=== PATIENT | female | born 2000 | race Two or more races ===

== ENCOUNTER 2024-11-15 19:31 | Emergency (ER) | payer OTHER ==
[~2024-11-15] VITALS: Ht 167.6 cm; Wt 76.5 kg
--- NOTE | 2024-11-15 21:14 | ED.PDOC ---
MOTHER SUPERIOR HPI Comments 24-year-old female who came to ER for abdominal pain. Patient is a , a pproximately 16 weeks . States she tripped earlier, and fell badly on her suprapubic area. Denies any vaginal bleeding. Chief Complaint: Abdominal Pain Time Seen by MD: 21:14 Reviewed Notes: Nurses Notes Allergies: Coded Allergies: NO KNOWN ALLERGIES (Unverified , 11/15/24) Information Source: Patient Mode of Arrival: Ambulatory Timing: Hours Severity: Mild Vaginal Discharge: None Vaginal Lesions: None Sexual Activity: Associated Signs and Symptoms: Abdominal Pain Past Medical History PAST MEDICAL HISTORY: Denies Surgical History: Denies all surgeries 1 Para 0 Family History Family History: Reviewed,noncontributory to illness Social History Smoker: Non-Smoker Alcohol: Denies ETOH Use Drugs: Denies Drug Use Lives In: Home Constitutional: denies: chills, diaphoresis, fatigue, fever, malaise, sweats, weakness, others EENTM: denies: blurred vision, double vision, ear bleeding, ear discharge, ear drainage, ear pain, ear ringing, eye pain, eye redness, hearing loss, mouth pain, mouth swelling, nasal discharge, nose bleeding, nose congestion, nose pain, photophobia, tearing, throat pain, throat swelling, voice changes, others Respiratory: denies: cough, hemoptysis, orthopnea, SOB at rest, shortness of breath, SOB with excertion, stridor, wheezing, others Cardiovascular: denies: chest pain, dizzy spells, diaphoresis, Dyspnea on exertion, edema, irregular heart beat, left arm pain, lightheadedness, palpitations, PND, syncope, others Gastrointestinal: reports: abdominal pain; denies: abdomen distended, blood streaked bowels, constipated, diarrhea, dysphagia, difficulty swallowing, hematemesis, melena, nausea, poor appetite, poor fluid intake, rectal bleeding, rectal pain, vomiting, others Genitourinary: denies: abnormal vagina bleeding, burning, dyspareunia, dysuria, flank pain, frequency, hematuria, incontinence, pain, , vagina discharge, urgency, others Neurological: denies: dizziness, fainting, headache, left sided numbness, left sided weakness, numbness, paresthesia, pre-existing deficit, right sided numbness, right sided weakness, seizure, speech problems, tingling, tremors, weakness, others Musculoskeletal: denies: back pain, gout, joint pain, joint swelling, muscle pain, muscle stiffness, neck pain, others Integumetry: denies: bruises, change in color, change in hair/nails, dryness, laceration, lesions, lumps, rash, wounds, others Allergic/Immunocompromised: denies: Difficulty Healing, Frequent Infections, Hives, Itching, others Hematologic/Lymphatic: denies: anemia, blood clots, easy bleeding, easy bruising, swollen glands, others Endocrine: denies: excessive hunger, excessive sweating, excessive thirst, excessive urination, flushing, intolerance to cold, intolerance to heat, unexplained weight gain, unexplained weight loss, others Psychiatric: denies: anxiety, bipolar disorder, depression, hopeless, panic disorder, schizophrenia, sleepless, suicidal, others Physical Exam General Appearance: No Apparent Distress, Normal HEENT: Normal ENT Inspection, Pharynx Normal, TMs Normal Neck: Full Range of Motion, Non-Tender, Normal, Normal Inspection Respiratory: Chest Non-Tender, Lungs Clear, No Accessory Muscle Use, No Respiratory Distress, Normal Breath Sounds Cardiovascular: No Edema, No JVD, No Murmur, No Gallop, Normal Peripheral Pulses, Regular Rate/Rhythm Breast Exam: Deferred Gastrointestinal: No Organomegaly, Non Tender, No Pulsatile Mass, Normal Bowel Sounds, Soft Genitalia: Deferred Pelvic: Deferred Rectal: Deferred Extremities: No calf tenderness, Normal capillary refill, Normal inspection, Normal range of motion, Non-tender, No pedal edema Musculoskeletal : Apperance: Normal Neurologic: Alert, welder explosion II-XII nml as Tested, No Motor Deficits, Normal Affect, Normal Mood, No Sensory Deficits Cerebellar Function: Normal Reflexes: Normal Skin: Dry, Normal Color, Warm Lymphatic: No Adenopathy Was a procedure done? Was a procedure done?: No Differential Diagnosis (SPOT MACHINE OPERATOR) Vaginal Bleeding: - Missed, - Threatened, Trauma, UTI Vaginal Discharge: X-Ray, Labs, Meds, VS Vital Signs Date Time Temp Pulse Resp B/P (MAP) Pulse Ox O2 Delivery O2 Flow Rate FiO2 11/16/24 00:46 98.1 88 19 124/79 (94) 99 98.1 11/16/24 00:46 88 18 99 Room Air* 0 21 8/28/25 19:34 98.1 88 18 124/79 99 98.1 Lab Test 11/15/24 22:46 11/15/24 21:12 Range/Units Urine Color Yellow Yellow Urine Clarity Turbid H Clear Urine pH 6.5 5.0-9.0 Urine Specific [place] 1.029 1.001-1.035 Urine Protein Trace H Negative Urine Ketones 3+ H Negative Urine Blood Negative Negative /uL Urine Nitrite Negative Negative Urine Bilirubin Negative Negative Urine Urobilinogen Normal Negative mg/dL Urine Leukocyte Esterase Negative Negative /uL Urine RBC None seen 0 - 4 /hpf Urine Microscopic WBC 3 0-5 /HPF Urine Squamous Epithelial Cells Mod <5 /hpf Urine Bacteria None seen None Seen /hpf Urine Mucus Few None Seen Urine Glucose Normal Normal mg/dL White Blood Count 6.9 4.4-10.8 10^3/uL Red Blood Count 4.70 4.0-5.20 10^6/uL Hemoglobin 13.0 12.2-16.2 g/dL Hematocrit 38.0 36.0-46.0 % Mean Corpuscular Volume 80.9 80.0-100.0 fL Mean Corpuscular Hemoglobin 27.6 L 28.0-32.0 pg Mean Corpuscular Hemoglobin Concent 34.1 32.0-36.0 g/dL Red Cell Distribution Width 25.7 H 11.8-14.3 % Platelet Count 179 140-450 10^3/uL Mean Platelet Volume 10.2 6.9-10.8 fL Neutrophils (%) (Auto) 69.9 37.0-80.0 % Lymphocytes (%) (Auto) 23.5 10.0-50.0 % Monocytes (%) (Auto) 4.7 0.0-12.0 % Eosinophils (%) (Auto) 1.6 0.0-7.0 % Basophils (%) (Auto) 0.3 0.0-2.0 % Neutrophils # (Auto) 4.9 1.6-8.6 10 ^3/uL Lymphocytes # (Auto) 1.6 0.4-5.4 10 ^3/uL Monocytes # (Auto) 0.3 0-1.3 10 ^3/uL Eosinophils # (Auto) 0.1 0-0.8 10 ^3/uL Basophils # (Auto) 0 0-0.2 10 ^3/uL Nucleated Red Blood Cells 0.0 % Sodium Level 138 136-145 mmol/L Potassium Level 3.3 L 3.5-5.1 mmol/L Chloride Level 104 98-107 mmol/L Carbon Dioxide Level 22 20-31 mmol/L Anion Gap 12 5-15 Blood Urea Nitrogen < 5 L 9-23 mg/dL Creatinine 0.45 L 0.550-1.02 mg/dL Glomerular Filtration Rate Calc 139 >90 mL/min BUN/Creatinine Ratio 11.1 10.0-20.0 Serum Glucose 98 74-106 mg/dL Calcium Level 9.5 8.7-10.4 mg/dL Beta HCG, Quantitative 09877.7 H 1.5-4.2 mIU/mL Time of 1ST Reevaluation: 21:12 Reevaluation 1ST: Unchanged Patient Education/Counseling: Diagnosis, Treatment Family Education/Counseling: Diagnosis, Treatment Departure 1 Departure Time of Disposition: 23:00 Impression: Primary Impression: 16 weeks gestation of Additional Impression: Abdominal pain affecting Disposition: 01 HOME / SELF CARE / HOMELESS Condition: Stable Discharged With: Self Critical Care Note Critical Care Time?: No Stability Stability form required: No Heart Score Heart Score: Heart Score Response (Comments) Value History N/A 0 EKG N/A 0 Age N/A 0 Risk Factors N/A 0 Troponin N/A 0 Total 0 I personally scribed for GITA ARTIS MD ([email or web address]) on 11/15/24 at 21:14. Electronically submitted by Nikolai Crockett ([email or web address]). GITA ARTIS MD Nov 15, 2024 21:14
[2024-11-15 21:41] LABS: Hematocrit 38.0 % (36.0-46.0); Hemoglobin 13.0 g/dL (12.2-16.2); Mean Corpuscular Hemoglobin 27.6 pg (28.0-32.0); Mean Corpuscular Volume 80.9 fL (80.0-100.0); Nucleated Red Blood Cells % 0.0 %
[2024-11-15 21:48] LABS: Chloride 104 mmol/L (98-107); Sodium 138 mmol/L (136-145)
[2024-11-15 21:49] LABS: Anion Gap 12 (5-15); Calcium 9.5 mg/dL (8.7-10.4); Carbon Dioxide 22 mmol/L (20-31)
[2024-11-15 21:54] LABS: Glucose 98 mg/dL (74-106)
--- NOTE | 2024-11-15 21:57 | DVH ---
LIMITED SURVEY CLINICAL HISTORY: pain, 16 wks COMPARISON: None TECHNIQUE: Real-time grayscale, color flow and M-mode imaging of the gravid uterus is performed. FINDINGS: Single living intrauterine gestation. Breech presentation. heart rate 155 beats per minute. Average ultrasound age 17 weeks 2 days. Estimated due date 04/23/2025. The placenta is posterior. The cervix is not clearly visualized. No definite evidence of abruption or previa at this time. measurements (cm): BPD 3.6, HC 13.6, AC 4.8, FL 2.4. Estimated weight: 192 g Amniotic fluid is visually adequate. IMPRESSION: Single living intrauterine gestation as above.
[2024-11-15 22:03] LABS: BUN/Creatinine Ratio 11.1 (10.0-20.0); Blood Urea Nitrogen < 5 mg/dL (9-23); Potassium 3.3 mmol/L (3.5-5.1)
[2024-11-16 00:10] LABS: Urine Protein, UAD TRACE (Negative)
[2024-11-16 00:46] VITALS: BP 124/79; PULSE 88; RESP 18; TEMP 98.1; O2SAT 99
== END 2024-11-16 00:56 | disposition home or self-care (01) ==
LOC: ER 19:31
DX: O26.892 Other specified pregnancy related conditions, second trimester (principal); R10.2 Pelvic and perineal pain; W01.0XXA Fall on same level from slipping, tripping and stumbling without subsequent striking against object, initial encounter; Y93.89 Activity, other specified; Y92.89 Other specified places as the place of occurrence of the external cause; Y99.8 Other external cause status; Z3A.16 16 weeks gestation of pregnancy
CPT/HCPCS: 36415; 76805; 80048; 81001; 84702; 85025

== ENCOUNTER 2024-12-21 10:17 | Observation (INO) | payer MEDICAID, OTHER ==
[~2024-12-21] VITALS: Ht 167.6 cm; Wt 78.2 kg
[2024-12-21 10:19] VITALS: BP 122/83; PULSE 84; RESP 16; TEMP 98.2; O2SAT 99
--- NOTE | 2024-12-21 10:32 | ED.PDOC ---
ADULT LIVE IN CAREGIVER HPI Comments A 24 YEAR OLD FEMALE PRESENTS TO THE ED WITH COMPLAINT OF VAGINAL SPOTTING DURING . PATIENT STATES SHE IS CURRENTLY ABOUT 21 WEEKS AND BEGAN TO EXPERIENCE VAGINAL SPOTTING YESTERDAY NIGHT. PATIENT REPORTS SHE WAS INSTRUCTED BY HER ADULT LIVE IN CAREGIVER TO COME TO THE ED FOR EVALUATION. PATIENT DENIES D YSURIA, HEMATURIA, VAGINAL DISCHARGE, FEVER, CHILLS, SHORTNESS OF BREATH, CHEST PAIN, ABDOMINAL PAIN, NAUSEA, VOMITING, HEADACHE, OR OTHER COMPLAINTS. NO OTHER SYMPTOMS OR MODIFYING FACTORS AT THIS TIME. PATIENT IS ALERT, ORIENTED X 4, AND HAS STEADY GAIT. Chief Complaint: Vaginal Bleed Time Seen by MD: 10:22 Reviewed Notes: Nurses Notes, Medications, Allergies Allergies: Coded Allergies: NO KNOWN ALLERGIES (Unverified , 11/15/24) Information Source: Patient Mode of Arrival: Ambulatory Timing: Days Prehospital treatment: None Severity: Mild Vaginal Discharge: None Vaginal Lesions: None Bleeding Quality: Bright Red Vaginal Mass: None Onset Of Mass/Bleeding: Spontaneous Sexual Activity: Control: None History of: Current Blood Type: Unknown Symptoms of Possible : None Associated Signs and Symptoms: Vaginal Bleeding Past Medical History PAST MEDICAL HISTORY: Denies Surgical History: Denies all surgeries BLOOD BANK SUPERVISOR History: No Pertinent BLOOD BANK SUPERVISOR History Family History Family History: Reviewed,noncontributory to illness Social History Smoker: Non-Smoker Alcohol: Denies ETOH Use Drugs: Denies Drug Use Lives In: Home Constitutional: denies: chills, diaphoresis, fatigue, fever, malaise, sweats, weakness, others EENTM: denies: blurred vision, double vision, ear bleeding, ear discharge, ear drainage, ear pain, ear ringing, eye pain, eye redness, hearing loss, mouth pain, mouth swelling, nasal discharge, nose bleeding, nose congestion, nose pain, photophobia, tearing, throat pain, throat swelling, voice changes, others Respiratory: denies: cough, hemoptysis, orthopnea, SOB at rest, shortness of breath, SOB with excertion, stridor, wheezing, others Cardiovascular: denies: chest pain, dizzy spells, diaphoresis, Dyspnea on exertion, edema, irregular heart beat, left arm pain, lightheadedness, palpitations, PND, syncope, others Gastrointestinal: denies: abdomen distended, abdominal pain, blood streaked bowels, constipated, diarrhea, dysphagia, difficulty swallowing, hematemesis, melena, nausea, poor appetite, poor fluid intake, rectal bleeding, rectal pain, vomiting, others Genitourinary: reports: abnormal vagina bleeding (VAGINAL SPOTTING), ; denies: burning, dyspareunia, dysuria, flank pain, frequency, hematuria, incontinence, pain, vagina discharge, urgency, others Neurological: denies: dizziness, fainting, headache, left sided numbness, left sided weakness, numbness, paresthesia, pre-existing deficit, right sided numbness, right sided weakness, seizure, speech problems, tingling, tremors, weakness, others Musculoskeletal: denies: back pain, gout, joint pain, joint swelling, muscle pain, muscle stiffness, neck pain, others Integumetry: denies: bruises, change in color, change in hair/nails, dryness, laceration, lesions, lumps, rash, wounds, others Allergic/Immunocompromised: denies: Difficulty Healing, Frequent Infections, Hives, Itching, others Hematologic/Lymphatic: denies: anemia, blood clots, easy bleeding, easy bruising, swollen glands, others Endocrine: denies: excessive hunger, excessive sweating, excessive thirst, excessive urination, flushing, intolerance to cold, intolerance to heat, unexplained weight gain, unexplained weight loss, others Psychiatric: denies: anxiety, bipolar disorder, depression, hopeless, panic disorder, schizophrenia, sleepless, suicidal, others All Other Systems: Reviewed and Negative Physical Exam General Appearance: No Apparent Distress, Normal HEENT: Normal ENT Inspection, PERRL/EOMI, Pharynx Normal, TMs Normal Neck: Full Range of Motion, Non-Tender, Normal, Normal Inspection Respiratory: Chest Non-Tender, Lungs Clear, No Accessory Muscle Use, No Respiratory Distress, Normal Breath Sounds Cardiovascular: No Edema, No JVD, No Murmur, No Gallop, Normal Peripheral Pulses, Regular Rate/Rhythm Breast Exam: Deferred Gastrointestinal: No Organomegaly, Non Tender, No Pulsatile Mass, Normal Bowel Sounds, Soft Genitalia: Deferred Pelvic: Normal External Exam, Other (VAGINAL SPOTTING, NO VAGINAL BLEEDING AND BLOOD CLOTS. ) Rectal: Deferred Extremities: No calf tenderness, Normal capillary refill, Normal inspection, Normal range of motion, Non-tender, No pedal edema Musculoskeletal : Apperance: Normal Neurologic: Alert, conference interpreter II-XII nml as Tested, No Motor Deficits, Normal Affect, Normal Mood, No Sensory Deficits Cerebellar Function: Normal Reflexes: Normal Skin: Dry, Normal Color, Warm Peripheral Pulses: 2+ carotid (R), 2+ carotid (L) Lymphatic: No Adenopathy Was a procedure done? Was a procedure done?: No Differential Diagnosis (BLOOD BANK SUPERVISOR) Vaginal Bleeding: - Incomplete, - Threatened, UTI, Vaginitis Mass / Lesion: N/A Vaginal Discharge: UTI, N/A X-Ray, Labs, Meds, VS Vital Signs Date Time Temp Pulse Resp B/P (MAP) Pulse Ox O2 Delivery O2 Flow Rate FiO2 12/21/24 10:19 98.2 84 16 122/83 99 98.2 X-Ray, Labs, Meds, VS Comment EXTERNAL MEDICAL RECORDS REVIEWED: [NONE] INDEPENDENT HISTORIANS: [NONE] SOCIAL DETERMINANTS OF HEALTH: [NONE] LABS ORDERED: NONE REVIEWED AND INTERPRETED RESULTS: NONE IMAGING ORDERED: NONE TREATMENTS ORDERED: NONE PROCEDURES PERFORMED: NONE CRITICAL CARE TIME: NONE I HAVE DISCUSSED THE PATIENT WITH THE ATTENDING PHYSICIAN DR. LU AND HE AGREES WITH THE PATIENT'S PLAN OF CARE. PATIENT WAS SENT TO LABOR AND DELIVERY FOR MONITORING, DUE TO BEING 21 WEEKS THIS TIME. Time of 1ST Reevaluation: 10:50 Reevaluation 1ST: Improved Patient Education/Counseling: Diagnosis, Treatment, Need For Follow Up Family Education/Counseling: Diagnosis, Treatment, Need For Follow Up Medical Screening: No EMC Exist At This Time Departure 1 Departure Time of Disposition: 11:50 Impression: Primary Impression: Vaginal spotting Additional Impression: Threatened in second trimester Disposition: 30 STILL A PATIENT Condition: Stable Additional Instructions: FOLLOW-UP WITH PCP ADULT LIVE IN CAREGIVER IN 1 TO 2 DAYS. RETURN TO ED FOR ANY NEW OR WORSENING SYMPTOMS. Discharged With: Self Critical Care Note Critical Care Time?: No Stability Stability form required: No I personally scribed for ALISA ALVARES ([email or web address]) on 12/21/24 at 10:32. Electronically submitted by Andi Sandoval ([email or web address]). ALISA ALVARES Dec 21, 2024 10:32
[2024-12-21] MEDS ORDERED: TERBUTALINE SULFATE 1 MG/ML 1ML VIAL SC ONE (11:39)
--- NOTE | 2024-12-21 11:52 | DVH ---
OB ULTRASOUND COMPLETE: HISTORY: Vaginal spotting @ 21.6 gestation TECHNIQUE: Multiple real-time grayscale images of the gravid uterus with duplex Doppler color flow an d M-mode spectral analysis. FINDINGS: Posterior placenta. HR: 147 bpm Current STEPHON: 5.3 cm IMPRESSION: Cervix not visualized, appears to be bulging bag. Fluid seen in the cervix. Enteritis Breech presentation.
--- NOTE | 2024-12-21 14:03 | DVHDS2 ---
Physician Discharge Progress N Final Diagnosis: vag bleeding 21wks Operations or Procedures: Operations or Procedures sono reveals cx shortening ,no active bleeding noted.i attempted to transfer pt to [facility] but she was not accepted due to lack of bed,llum and [facility] consider her nonviable for transfer. pt was asked by her dr to go to [facility].at this point pt is given terb and ivf . there is no bleeding or contractions .pt wants to go ama to go to [facility] or [facility] .denied having contractionpt understands risks and complication associated with ama Condition on Discharge: Undetermined Disposition: AMA SNF Discharge Will this Physician continue t: No Discharge Instructions: Activity: Medications: na Follow Up Care: Specialist: left ama Discharge Statement: "Patient was advised to return to the ER or call 911 if any headaches, dizziness, shortness of breath, chest pain, abdominal pain, bleeding, fevers, or worsening of medical condition. Patient was counseled about treatment plan, medications, possible side effects, patientverbalized understanding. All questions were answered to the best of my ability. This discharge took greater then 30 minutes in planning, reviewing documentation, counseling the patient, and discussing with other team members." Visit Coding OBGYN Date of Service: Dec 21, 2024 Billing Provider: LUIS MORRIS DO WEATHER ANALYST Common Visit Codes: [id number] OBS CARE (HIGH) WEATHER ANALYST Procedure Codes: 71246-52- NON-STRESS TEST LUIS MORRIS DO Dec 21, 2024 14:03
[2024-12-21] MEDS: TERBUTALINE SULFATE 1 MG/ML 1ML VIAL SC ONE (17:24)
[2024-12-21] MEDS: LACTATED RINGER'S 1,000 ML IV ONE (17:25)
== END 2024-12-21 12:37 | disposition home or self-care (01) ==
LOC: ER 10:19 → LDRP 10:40 → UNDOADMOB 10:40 → LDRP 10:52
PROVIDERS: ADMIT Obstetrics & Gynecology; ATTEND Obstetrics & Gynecology
DX: O46.92 Antepartum hemorrhage, unspecified, second trimester (principal); Z3A.21 21 weeks gestation of pregnancy; Z98.890 Other specified postprocedural states
CPT/HCPCS: 76815; 81002; 96360; 96372; 99284; G0378; J3105